=== PATIENT | female | born 1990 | race Asian ===

== ENCOUNTER 2023-05-15 08:23 | Emergency (ER) | payer BC ==
[~2023-05-15] VITALS: Ht 162.6 cm; Wt 58.0 kg
[2023-05-15 08:32] VITALS: O2SAT 97
[2023-05-15] MEDS ORDERED: DIPHENHYDRAMINE 50MG/ML VIAL IM PRN (08:45)
[2023-05-15] MEDS ORDERED: PROCHLORPERAZINE MALEATE 10MG TABLET PO ONE (08:45)
[2023-05-15] MEDS ORDERED: KETOROLAC 60MG/2ML VIAL IM STA (08:45)
[2023-05-15] MEDS ORDERED: PROC-11 MT (10:56)
[2023-05-15 11:18] VITALS: BP 128/85; PULSE 78; RESP 18; TEMP 98.3
== END 2023-05-15 11:19 | disposition home or self-care (01) ==
LOC: ER 08:23
DX: G43.909 Migraine, unspecified, not intractable, without status migrainosus (principal); F90.9 Attention-deficit hyperactivity disorder, unspecified type; E11.9 Type 2 diabetes mellitus without complications; Z98.890 Other specified postprocedural states
CPT/HCPCS: 81025; 70450; 93005; 96372; 99285; J1885; Z7610; J1200; Q0164